=== PATIENT | male | born 1970 | race Two or more races ===

== ENCOUNTER 2022-05-30 16:34 | Outpatient (REF) | payer OTHER, SELFPAY ==
[2022-05-30 16:50] LABS: MANUAL DIFF FLAG NO
[2022-05-30 17:06] LABS: Basophils Percent Auto 0.5 % (0-2); Eosinophils Absolute Auto 0.1 X10*3/uL (0.0-0.4); Eosinophils Percent Auto 1.8 % (0-4); Hematocrit 40.8 % (42.0-52.0); Hemoglobin 14.3 g/dl (14.0-18.0); Imm Gran Abs Auto 0.02 X10*3/uL (0.00-0.03); Imm Gran Pct Auto 0.3 % (0.0-0.4); Lymphocytes Absolute Auto 1.9 X10*3/uL (1.2-4.9); Lymphocytes Percent Auto 23.5 % (20-40); Mean Corpuscular Volume 91.3 fL (80.0-98.0); Mean Platelet Volume 10.1 fL (9.4-12.4); Monocytes Absolute Auto 0.7 X10*3/uL (0.1-1.2); Neutrophils Absolute Auto 5.1 x10*3/uL (2.0-8.3); Neutrophils Percent Auto 64.9 % (45-73); Platelet Count 276 X10*3/uL (160-400); Red Blood Count 4.47 X10*6/uL (4.60-5.80); Red Cell Distribution Width 13.1 % (11.0-16.0); White Blood Count 7.9 X10*3/uL (4.8-10.8)
[2022-05-30 17:50] LABS: Alanine Aminotransferase 26 U/L (0-40); Alkaline Phosphatase 54 U/L (39-117); Anion Gap 12 (12-20); Aspartate Amino Transferase 20 U/L (5-37); Bilirubin Total 0.3 mg/dL (0.0-1.0); Blood Urea Nitrogen 12 mg/dL (9-16); Calcium 8.7 mg/dL (8.4-10.2); Carbon Dioxide 28 mmol/L (22-29); Chloride 105 mmol/L (96-108); Cholesterol 151 mg/dL; Estimated Glomerular Filt Rate > 60; Glucose Random 103 mg/dL (60-115); HDL Cholesterol 39 mg/dL; LDL Cholesterol Calculated 81 mg/dl; Potassium 4.2 mmol/L (3.3-5.1); Sodium 141 mmol/L (135-145); Total Protein 7.2 g/dL (6.5-8.0); Triglycerides 158 mg/dL
[2022-05-30 18:10] LABS: Thyroid Stimulating Hormone 1.91 uIU/mL (0.32-4.0)
== END 2022-05-30 16:35 | disposition home or self-care (01) ==
LOC: HO.LAB 16:34
PROVIDERS: PCP Internal Medicine; Visit Provider Internal Medicine
DX: Z00.00 Encounter for general adult medical examination without abnormal findings (principal); Z13.31 Encounter for screening for depression; E78.1 Pure hyperglyceridemia; F12.20 Cannabis dependence, uncomplicated; I10 Essential (primary) hypertension
CPT/HCPCS: 36415; 80053; 80061; 84443; 85025

== ENCOUNTER 2023-07-11 16:09 | Outpatient (REF) | payer OTHER, SELFPAY | END 2023-07-11 16:10 | disposition home or self-care (01) | LOC: HO.LAB 16:09 | PROVIDERS: PCP Internal Medicine; Visit Provider Internal Medicine | DX: Z00.00 Encounter for general adult medical examination without abnormal findings (principal); E78.1 Pure hyperglyceridemia; I10 Essential (primary) hypertension; M54.50 Low back pain, unspecified; Z12.5 Encounter for screening for malignant neoplasm of prostate | CPT/HCPCS: 36415; 80053; 80061; 84153; 85025 ==

== ENCOUNTER 2023-12-14 08:59 | Outpatient (REF) | payer OTHER, SELFPAY ==
[2023-12-14 10:08] LABS: Alanine Aminotransferase 24 U/L (0-40); Albumin Level 4.1 g/dL (3.5-5.0); Alkaline Phosphatase 45 U/L (39-117); Anion Gap 11 (12-20); Aspartate Amino Transferase 20 U/L (5-37); Bilirubin Total 0.6 mg/dL (0.0-1.0); Blood Urea Nitrogen 16 mg/dL (9-16); Calcium 9.2 mg/dL (8.4-10.2); Carbon Dioxide 28 mmol/L (22-29); Chloride 106 mmol/L (96-108); Cholesterol 135 mg/dL (<200); Estimated Glomerular Filt Rate 57; Glucose Random 116 mg/dL (60-115); HDL Cholesterol 37 mg/dL (>40); LDL Cholesterol Calculated 80 mg/dL (<100); Potassium 4.2 mmol/L (3.3-5.1); Sodium 141 mmol/L (135-145); Total Protein 7.5 g/dL (6.5-8.0); Triglycerides 91 mg/dL (<150)
== END 2023-12-14 09:00 | disposition home or self-care (01) ==
LOC: HO.LAB 08:59
PROVIDERS: PCP Internal Medicine; Visit Provider Internal Medicine
DX: Z12.5 Encounter for screening for malignant neoplasm of prostate (principal); E78.1 Pure hyperglyceridemia; I10 Essential (primary) hypertension; R97.20 Elevated prostate specific antigen [PSA]
CPT/HCPCS: 36415; 80053; 80061; 84153

== ENCOUNTER 2024-06-05 16:11 | Outpatient (REF) | payer OTHER, SELFPAY ==
[2024-06-05 17:42] LABS: Alanine Aminotransferase 32 U/L (0-40); Alkaline Phosphatase 58 U/L (39-117); Anion Gap 12 (12-20); Aspartate Amino Transferase 24 U/L (5-37); Bilirubin Total 0.4 mg/dL (0.0-1.0); Blood Urea Nitrogen 13 mg/dL (9-16); Carbon Dioxide 28 mmol/L (22-29); Chloride 105 mmol/L (96-108); Estimated Glomerular Filt Rate 60; Glucose Random 80 mg/dL (60-115); Sodium 141 mmol/L (135-145); Total Protein 7.2 g/dL (6.5-8.0)
[2024-06-05 18:04] LABS: Prostate Specific Antigen 3.14 ng/mL (<0.05-4.0)
[2024-06-06 07:28] LABS: Estimated Average Glucose 111 mg/dL; Hemoglobin A1c % 5.5 % (<6.0)
== END 2024-06-05 16:12 | disposition home or self-care (01) ==
LOC: HO.LAB 16:11
PROVIDERS: PCP Internal Medicine; Visit Provider Internal Medicine
DX: Z00.00 Encounter for general adult medical examination without abnormal findings (principal); E78.00 Pure hypercholesterolemia, unspecified; I10 Essential (primary) hypertension; N18.9 Chronic kidney disease, unspecified; N40.0 Benign prostatic hyperplasia without lower urinary tract symptoms; R73.01 Impaired fasting glucose; Z12.5 Encounter for screening for malignant neoplasm of prostate
CPT/HCPCS: 36415; 80053; 83036; 84153

== ENCOUNTER 2025-03-11 07:38 | Outpatient (REF) | payer OTHER, SELFPAY ==
--- OUTSIDE RECORDS SUMMARY | 2025-03-11 07:41 | XMS_ITS | Clinical Summary ---
Author Organization [email or web address] [facility] it Address [address] [place] [address] Care Team Providers Care Performance Instructor Name Role Phone Sally Holliday MD Primary Care Provider [phone] Surgical History Surgery Date Site/Laterality Comments OTHER SURGICAL HISTORY PROCEDURE: DENIES PREVIOUS SURGERY Medical History Medical History Date Comments Hypertension DX:Hypertension Mixed hyperlipidemia DX:Mixed hy perlipidemia Social History Tobacco Use Types Packs/Day Years Used Date Smoking Tobacco: Never Assessed Sex and Gender Information Value Date Recorded Sex Assigned at Not on file Legal Sex Male 5:07 AM EST Gender Identity Not on file Sexual Orientation Not on file Obstetrics History Last Filed Vital Signs Vital Sign Reading Time Taken Comments Blood Pressure 126/75 09/19/2022 11:27 AM EST Pulse 88 09/19/2022 11:27 AM EST Temperature - - Respiratory Rate - - Oxygen Saturation - - Inhaled Oxygen Concentration - - Weight 91.4 kg (201 lb 6.4 oz) 09/19/2022 11:27 AM EST Height 167.6 cm (5' 6 ) 09/19/2022 11:27 AM EST Body Mass Index 32.51 09/19/2022 11:27 AM EST Plan of Treatment Health Maintenance Due Date Last Done Comments DTaP,Tdap,and Td Vaccines (1 - Tdap) 1988 Hepatitis B Vaccines (1 of 3 - 19+ 3-dose series) 1988 Pneumococcal Vaccine: 50+ Ye ars (1 of 1 - PCV) 12/29/2019 Zoster Vaccines (1 of 2) 12/29/2019 Cholesterol Screening (Lipid Panel) 09/10/2022 Colorectal Cancer Screening: Colonoscopy 09/10/2022 Depression Screening 09/10/2022 HIV Screening 09/10/2022 Hepatitis C Screening 09/10/2022 Social Influencers of Health Screening 09/10/2022 COVID-19 Vaccine (2023-2 5 season) 2024 Influenza Vaccine (Season Ended) 2025 HIB Vaccines Aged Out No longer eligi ble based on patient's age to complete this topic HPV Vaccines Aged Out No longer eligi ble based on patient's age to complete this topic Hepatitis A Vaccines Aged Out No long er eligible based on patient's age to complete this topic IPV Vaccines Aged Out No longer eligi ble based on patient's age to complete this topic MMR Vaccines Aged Out No longer eligi ble based on patient's age to complete this topic Meningococcal ACWY Vaccine Aged Out N o longer eligible based on patient's age to complete this topic Meningococcal B Vaccine Aged Out No l onger eligible based on patient's age to complete this topic Pneumococcal Vaccine: Pediat rics (0 to 5 Years) and At-Risk Patients (6 to 64 Years) Aged Out No longer eligible b ased on patient's age to complete this topic RSV Immunization Patients Un mikaela 20 months Aged Out No longer eligible b ased on patient's age to complete this topic Varicella Vaccines Aged Out No longer eligible based on patient's age to complete this topic Care Teams Performance Instructor Relationship Specialty Start Date End Date Sally Holliday MD [address] [place] [address] PCP - General Internal Medicine 11/12/20
[2025-03-11 07:52] LABS: MANUAL DIFF FLAG NO
[2025-03-11 08:19] LABS: Basophils Percent Auto 0.4 % (0-2); Eosinophils Absolute Auto 0.2 X10*3/uL (0.0-0.4); Eosinophils Percent Auto 2.3 % (0-4); Hematocrit 40.6 % (42.0-52.0); Imm Gran Abs Auto 0.02 X10*3/uL (0.00-0.03); Imm Gran Pct Auto 0.3 % (0.0-0.4); Lymphocytes Absolute Auto 1.7 X10*3/uL (1.2-4.9); Mean Corpuscular HGB Conc 34.5 g/dl (31.0-36.0); Mean Corpuscular Hemoglobin 31.7 pg (27.0-33.0); Mean Corpuscular Volume 91.9 fL (80.0-98.0); Mean Platelet Volume 10.2 fL (9.4-12.4); Monocytes Absolute Auto 0.7 X10*3/uL (0.1-1.2); Monocytes Percent Auto 9.3 % (2-11); Neutrophils Absolute Auto 4.7 x10*3/uL (2.0-8.3); Neutrophils Percent Auto 64.7 % (45-73); Platelet Count 260 X10*3/uL (160-400); Red Blood Count 4.42 X10*6/uL (4.60-5.80); Red Cell Distribution Width 12.8 % (11.0-16.0); White Blood Count 7.3 X10*3/uL (4.8-10.8)
[2025-03-11 08:52] LABS: Alanine Aminotransferase 22 U/L (0-40); Albumin Level 3.9 g/dL (3.5-5.0); Alkaline Phosphatase 63 U/L (39-117); Anion Gap 8 (12-20); Aspartate Amino Transferase 25 U/L (5-37); Bilirubin Total 0.3 mg/dL (0.0-1.0); Blood Urea Nitrogen 15 mg/dL (9-16); Calcium 8.8 mg/dL (8.4-10.2); Carbon Dioxide 30 mmol/L (22-29); Chloride 107 mmol/L (96-108); Cholesterol 111 mg/dL (<200); Estimated Glomerular Filt Rate > 60; Glucose Random 98 mg/dL (60-115); HDL Cholesterol 31 mg/dL (>40); LDL Cholesterol Calculated 55 mg/dL (<100); Potassium 4.6 mmol/L (3.3-5.1); Sodium 140 mmol/L (135-145); Total Protein 6.8 g/dL (6.5-8.0); Triglycerides 127 mg/dL (<150)
[2025-03-11 09:11] LABS: Prostate Specific Antigen Scr 4.15 ng/mL (<0.05-4.0)
== END 2025-03-11 07:39 | disposition home or self-care (01) ==
LOC: HO.LAB 07:38
PROVIDERS: PCP Internal Medicine; Visit Provider Internal Medicine
DX: Z12.5 Encounter for screening for malignant neoplasm of prostate (principal); E78.00 Pure hypercholesterolemia, unspecified; I10 Essential (primary) hypertension; N40.0 Benign prostatic hyperplasia without lower urinary tract symptoms
CPT/HCPCS: 36415; 80053; 80061; 84153; 85025

== ENCOUNTER 2025-05-16 15:23 | Outpatient (AMB) | payer OTHER, SELFPAY ==
--- NOTE | 2025-05-16 15:25 | MHC.OFFVIS ---
Intake Visit Reasons: Elevated PSA Intake Note: New Patient is present for elevated PSA Urology Rx:none Blood Thinners:none Imaging completed: none Labs done : 03/11/25 : 4.15 Manager Program Management Required: No Accompanied by: Self / Same As Patient Allergies No Known Allergies Allergy (Verified 05/16/25 15:41) HPI Comments Details: Elevated PSA [facility] Medical History (Updated 05/16/25 @ 16:12 by Bhupinder Valentin MD) Essential hypertension Results AMB Urinalysis, Automated UA Leukoctes 0 Pilar/uL Last Edit by MICHAEL Cortez on 05/16/25 16:03 UA Nitrite Negative Last Edit by MICHAEL Cortez on 05/16/25 16:03 UA Urobilinogen 0.2 mg/dL Last Edit by MICHAEL Cortez on 05/16/25 16:03 UA Protein 0 mg/dL Last Edit by Reyna Leggett CCM on 05/16/25 16:03 UA pH 6.0 Last Edit by MICHAEL Cortez on 05/16/25 16:03 UA Blood 0 Jose/uL Last Edit by Reyna Leggett CCM on 05/16/25 16:03 UA Specific [place] 1.020 Last Edit by MICHAEL Cortez on 05/16/25 16:03 UA Ketone Negative Last Edit by MICHAEL Cortez on 05/16/25 16:03 UA Bilirubin 0 mg/dL Last Edit by MICHAEL Cortez on 05/16/25 16:03 UA Glucose 0 mg/dL Last Edit by Reyna Leggett CCM on 05/16/25 16:03 Results Reviewed Results Reviewed: Laboratory Last Values Urine pH (Auto) 6.0 05/16/25 16:02 Specific [place] (Auto) 1.020 05/16/25 16:02 Urine Protein (Auto) 0 mg/dL 05/16/25 16:02 Glucose (UA)(Auto) 0 mg/dL 05/16/25 16:02 Urine Ketones (Auto) Negative 05/16/25 16:02 Urine Blood (Auto) 0 Jose/uL 05/16/25 16:02 Urine Nitrite (Auto) Negative 05/16/25 16:02 Urine Bilirubin (Auto) 0 mg/dL 05/16/25 16:02 Urine Urobilinogen (Auto) 0.2 mg/dL 05/16/25 16:02 Leukocyte Esterase (Auto) 0 Pilar/uL 05/16/25 16:02 Assessment & Plan Assessment & Plan (1) Elevated PSA: Code(s): R97.20 - Elevated prostate specific antigen [PSA] Category: Medical Orders: Orders AMB Urinalysis Automated Today Z13.9 - Encounter for screening, unspecified Prostate Specific Antigen 4 Months R97.20 - Elevated prostate specific antigen [PSA] PSA,Total (Free>4and<10) Today R97.20 - Elevated prostate specific antigen [PSA] US bladder Today R97.20 - Elevated prostate specific antigen [PSA] Coding Diagnoses Elevated PSA R97.20
--- OUTSIDE RECORDS SUMMARY | 2025-05-16 15:26 | XMS_ITS | Clinical Summary ---
Author Organization [employer] [facility] it Address [address] [place] [address] Care Team Providers Care Forest Fire Equipment Operator Name Role Phone Sally Holliday MD Primary Care Provider [phone] Surgical History Surgery Date Site/Laterality Comments OTHER [...] Panel) 09/10/2022 Colorectal Cancer Screening: Colonoscopy 09/10/2022 HIV Screening 09/10/2022 Hepatitis C Screening 09/10/2022 Social Influencers of Health Screening 09/10/2022 COVID-19 Vaccine (1 - 2023-2 5 season) 2024 Depression Screening 10/02/2024 Influenza Vaccine (#1) 2025 HIB Vaccines Aged Out No longer [...] age to complete this topic Care Teams Forest Fire Equipment Operator Relationship Specialty Start Date End Date Sally Holliday MD [address] [place], [place] PCP - General Internal Medicine 11/12/20
== END 2025-05-16 16:17 | disposition home or self-care (01) ==
LOC: HO.HUSH 15:24
PROVIDERS: PCP Internal Medicine; Visit Provider Urology
DX: Z13.9 Encounter for screening, unspecified (principal)

== ENCOUNTER 2025-05-16 15:23 | Outpatient (REF) | payer OTHER, SELFPAY ==
[2025-05-16 17:49] LABS: PSA,Total (Free>4and<10) 4.69 ng/mL (0.00-4.00)
[2025-05-19 11:59] LABS: Free Prostate Spec Ag 0.5 ng/mL; Percent Free Prostate Spec Ag 12 % (calc) (>25)
== END 2025-05-16 15:24 | disposition home or self-care (01) ==
LOC: HO.LAB 15:23
PROVIDERS: PCP Internal Medicine; Visit Provider Urology
DX: R97.20 Elevated prostate specific antigen [PSA] (principal); Z13.89 Encounter for screening for other disorder; Z12.5 Encounter for screening for malignant neoplasm of prostate
CPT/HCPCS: 36415; 81003; 84153; 84154

== ENCOUNTER 2025-09-05 11:39 | Outpatient (REF) | payer OTHER, SELFPAY ==
[2025-09-05 13:30] LABS: Prostate Specific Antigen 3.81 ng/mL (<0.05-4.0)
== END 2025-09-05 11:40 | disposition home or self-care (01) ==
LOC: HO.LAB 11:39
PROVIDERS: PCP Internal Medicine; Visit Provider Urology
DX: Z12.5 Encounter for screening for malignant neoplasm of prostate (principal); R97.20 Elevated prostate specific antigen [PSA]
CPT/HCPCS: 36415; 84153

== ENCOUNTER 2025-09-12 15:18 | Outpatient (REF) | payer OTHER, SELFPAY ==
--- NOTE | ~2025-09-12 | US_ITS ---
EXAMINATION: US PELVIS LIMITED (BLADDER) CLINICAL INFORMATION: Elevated PSA.. COMPARISON: None available. TECHNIQUE: Real-time imaging of the bladder. FINDINGS: BLADDER: Fluid-filled without gross abnormality. Bilateral ureteral jets are demonstrated. Prevoid bladder volume is 280 mL. Postvoid bladder volume is 32 mL. Prostate gland measures 3 x 4 x 5 cm and volume: 39 cc. US/US bladder IMPRESSION: 32 cc residual urine in a post void image. Prostate gland volume: 39 cc.. Electronically signed by: Nhan Schmidt MD 09/12/2025 03:56 PM EST
--- OUTSIDE RECORDS SUMMARY | 2025-09-12 20:12 | XMS_ITS | Clinical Summary ---
Author Organization [employer] [facility] it Address [address] [place] [address] Care Team Providers Care Assembler Skylights Name Role Phone Sally Holliday MD Primary Care Provider [phone] Surgical History Surgery Date Site/Laterality Comments OTHER [...] on file Sexual Orientation Not on file Last Filed Vital Signs Vital Sign Reading [...] Health Maintenance Due Date Last Done Comments Colorectal Cancer Screening: Colonoscopy 1969 DTaP,Tdap,and Td Vaccines (1 - Tdap) 1988 Hepatitis B Vaccines (1 of 3 - 19+ 3-dose series) 1988 Pneumococcal Vaccine: 50+ Ye ars (1 of 1 - PCV) 12/29/2019 Zoster Vaccines (1 of 2) 12/29/2019 Cholesterol Screening (Lipid Panel) 09/10/2022 HIV Screening 09/10/2022 Hepatitis C Screening 09/10/2022 Social Influencers of Health Screening 09/10/2022 Depression Screening 10/02/2024 COVID-19 Vaccine ( - 2024-2 6 season) 2025 Influenza Vaccine (#1) 2025 RSV Immunization Adult Patie nts (1 - 1-dose 75+ series) 2044 HIB Vaccines Aged Out No longer eligi [...] age to complete this topic Care Teams Assembler Skylights Relationship Specialty Start Date End Date Sally Holliday MD [address] PCP - General Internal Medicine 11/12/20
== END 2025-09-12 15:19 | disposition home or self-care (01) ==
LOC: HO.US 15:18
PROVIDERS: PCP Internal Medicine; Visit Provider Urology
DX: R97.20 Elevated prostate specific antigen [PSA] (principal)
CPT/HCPCS: 76857

== ENCOUNTER → 2025-09-12 15:21 | Outpatient (BNV) | payer OTHER, SELFPAY | PROVIDERS: PCP Internal Medicine; Visit Provider Radiology Diagnostic Radiology | DX: R97.20 Elevated prostate specific antigen [PSA] (principal) | CPT/HCPCS: 76857 ==

== ENCOUNTER 2025-09-19 11:38 | Outpatient (AMB) | payer OTHER, SELFPAY ==
--- NOTE | 2025-09-19 11:57 | A.OFFVIS_ITS ---
Intake Visit Reasons: 4M PSA/US(set) Intake Note: Reason for Visit: Ultrasound/PSA Follow Up Urology Meds: None Blood Thinners: None Labs: Last PSA: 4.69 (05/16/2025) PSA: 3.81 (09/05/2025) Imaging: Renal Ultrasound 09/12/2025 Last PVR: None Nuclear Plant Equipment Operator Required: No Accompanied by: Self / Same As Patient Allergies No Known Allergies Allergy (Verified 09/19/25 12:00) HPI Comments Details: Kyree is a pleasant male. He is a patient of Dr. Holliday. He seen for the following urologic conditions - elevated PSA Elevated PSA PSA - 06/25 3.1, 03/26 4.2, 09/25 3.8 DEEPTI normal 40 g prostate on ultrasound Recommend repeat PSA 4 month follow-up bladder ultrasound and repeat PSA [facility] Medical History Essential hypertension Review of Systems Const Denies chills and Denies fever(s) Card Reports no additional complaints and Denies syncope Resp Denies cough GI Denies abdominal pain and Denies heartburn Reports as per HPI and Denies change in libido Neuro Denies syncope Psych Denies change in libido Endo Denies change in libido Physical Exam Const General: cooperative, healthy appearing, comfortable and no acute distress Orientation/consciousness: patient oriented x3 HEENT Face and sinus: Yes normal facial exam Mouth: moist mucous membranes Neck Neck: Yes normal visual inspection, Yes full ROM and Yes trachea midline Chest Chest palpation & inspection: normal inspection of the chest Resp Effort & Inspection: normal respiratory effort, able to speak in complete sentences and no respiratory distress GI Inspection: Yes normal to inspection Back/Spine/Pelvis Cervical Spine: normal cervical lordosis Thoracic/Lumbar Spine: thoracic and lumbar spine normal to inspection Skin General skin exam: no rashes or lesions noted Neuro General: patient oriented x3, gait normal, tone normal and moves all extremities Extrem General: Yes normal to inspection and Yes capillary refill normal Assessment & Plan Assessment & Plan (1) Elevated PSA: Code(s): R97.20 - Elevated prostate specific antigen [PSA] Category: Medical Plan Elevated PSA - continue surveillance Orders: Orders PSA,Total (Free>4and<10) 12 Months R97.20 - Elevated prostate specific antigen [PSA] Patient Instructions: This note is constructed using voice recognition software. While every effort has been made to ensure accuracy paster operator errors may have been included. Imaging studies, laboratory and physical exam results were discussed and reviewed in detail. No major barriers to patient understanding were identified. An opportunity to ask questions regarding the treatment plan was provided. All questions were answered. The patient expressed understanding and agreement with the above treatment plan. The patient is aware they should contact our office by phone for worsening of their current condition or the appearance of new urologic symptoms. Compliance is encouraged with any medications and followup testing that is ordered. It is a privilege to participate in the urologic care of your patient. If you have any questions or concerns regarding treatment for the above conditions, or other urologic issues, please do not hesitate to contact me. The office telephone contact is [phone]. Sincerely, Dr Bhupinder Valentin MD, [facility] - Urology Compassionate Specialist Care for the Genitourinary System Coding Level of Care Code Est Pt Level 3 (09548) Diagnoses Elevated PSA R97.20
--- OUTSIDE RECORDS SUMMARY | 2025-09-19 13:45 | XMS_ITS | Clinical Summary ---
Author Organization [employer] [facility] it Address [address] [place] [address] Care Team Providers Care Watch Case Polisher Name Role Phone Sally Holliday MD Primary Care Provider [phone] Surgical History Surgery Date Site/Laterality Comments OTHER [...] age to complete this topic Care Teams Watch Case Polisher Relationship Specialty Start Date End Date Sally Holliday MD [address] PCP - General Internal Medicine 11/12/20
== END 2025-09-19 12:52 | disposition home or self-care (01) ==
LOC: HO.HUSH 11:39
PROVIDERS: PCP Internal Medicine; Visit Provider Urology
DX: R97.20 Elevated prostate specific antigen [PSA] (principal)
CPT/HCPCS: 99213